=== PATIENT | male | born 1965 | race African-American/Black ===

== ENCOUNTER 2017-02-25 21:46 | Inpatient (IN) | payer OTHER ==
[~2017-02-25] VITALS: Ht 188 cm; Wt 102.5 kg
--- NOTE | ~2017-02-25 | PA ---
Unit #: [id number] #: [id number] Patient: SANTY RUBIO [id number] [facility] [address] [place] [address] [id number] MR#: [id number] NAME: SANTY RUBIO ROOM: [facility] Age: 51 Sex: M Admission Date: 02/26/2017 : 1965 Date of Assessment: 02/26/2017 Attending Physician: Kvng Delgado M.D. Admitting Physician: Kvng Delagdo M.D. Primary Care Physician: Primary Care Physician No PSYCHIATRIC ASSESSMENT IDENTIFYING INFORMATION The patient is a 51-year-old male admitted to the [address] [place] [address] with increased depression and abuse of cocaine. CHIEF COMPLAINT "My and I split up." INFORMANT Patient, reliability is fair. HISTORY OF PRESENT ILLNESS The patient is a 51-year-old male who was admitted to the [address] [place] [address] after he had presented to [facility] reporting positive suicidal ideation. The patient was reporting plan of taking sleeping pills. The patient denied prior suicide attempts or gestures. He reports that approximately 4 to 5 months ago, his left him. He is now homeless and has no contact with his children. The patient is presently unemployed. He had previously worked as a cook. The patient reports that he has never been in psychiatric treatment and never attempted suicide. He does admit to frequent cocaine use but states that it was "never daily thing." The patient reports ongoing suicidal ideation and sad mood when seen today. PAST PSYCHIATRIC HISTORY None. PAST MEDICAL HISTORY Noncontributory. MEDICATIONS None. ALLERGIES None. FAMILY HISTORY Noncontributory. SOCIAL HISTORY The patient is presently homeless. He reports use of cocaine by means of intranasal insufflation. 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 However, a review of old rosters in the does not reveal the Unit #: [id number] #: [id number] Patient: SANTY RUBIO patient's name on those rosters, and it is felt that the patient is probably fabricating the story. He also claims to have been in the [place] for 10 years. He states that he has never been incarcerated. MENTAL STATUS EXAMINATION Examination at this time reveals the patient to be a well-developed well-nourished male appearing stated age. He is in no apparent physical distress at the time of examination. He is awake, alert, and oriented in all spheres. His mood is mildly dysphoric, his affect constricted. Speech is generally well-coherent. There are no gross deficits in memory or cognition noted. Intelligence is judged to be in the average range based on fund of knowledge. The patient is cooperative throughout the interview. He is currently endorsing positive suicidal ideation. He denies homicidal ideation. He denies any psychotic symptoms. His judgment and insight appear to be intact. ASSETS AND LIABILITIES The patient's assets: Motivation for change. Liabilities: Lack of resource from ongoing cocaine use. DIAGNOSTIC IMPRESSION 1. Dysthymic disorder. 2. Cocaine use disorder. TREATMENT PLAN The patient remains hospitalized for safety and stabilization. A trial of Lexapro 10 mg daily will be added to address the patient's Tourette symptoms. He will participate in appropriate order of milieu activities, and I will ask the elementary school social worker to see him regarding possible residential treatment for his cocaine addiction. ESTIMATED LENGTH OF STAY 3 to 5 days. Dictated byTracey Saez M.D. KEYA/marshall TD: 02/26/2017 14:16 JOB #: [id number] PSYCHIATRIC ASSESSMENT Page 1 of 1 X Wm. Rich aSez PSYCHIATRIC ASSESSMENT
--- NOTE | ~2017-02-25 | DS ---
Unit #: [id number] #: [id number] Patient: SANTY RUBIO [id number] [facility] [address] [place] [address] [id number] I MR#: [id number] NAME: SANTY RUBIO ROOM: [facility] Age: 51 Sex: M Admission Date: 02/26/2017 : 1965 Discharge Date: 03/03/2017 Attending Physician: Kvng Delgado M.D. Primary Care Physician: Primary Care Physician No DISCHARGE SUMMARY REASON FOR ADMISSION The patient is a 51-year-old male, admitted with depressed mood and increasing cocaine use. HOSPITAL COURSE The patient was admitted to the [address] [place] [address] unit and placed on suicide precautions. Lexapro 10 mg at 6 p.m. was initiated as well as p.r.n. trazodone 50 mg at h.s. The patient's stay in the hospital was a fairly uneventful one. 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 Review of roster's from the showed that the patient had never been enrolled at that facility. Whatever the case, the patient was generally pleasant and cooperative with interactions with peers and staff. By 03/03/2017, arrangements have been made for the patient to go to the [facility] and discharge was ordered. FINAL DIAGNOSES Cocaine use disorder and dysthymic disorder. DISPOSITION ON DISCHARGE The patient is discharged on the following medications; Lexapro 10 mg daily for depression, trazodone 50 mg at h.s. p.r.n. insomnia, and Norvasc 2.5 mg once daily for hypertension. DIET AND ACTIVITY No dietary or physical restrictions were placed on the patient at the time of discharge. FOLLOWUP Follow up will take place through the auspices of community mental health resources. PROGNOSIS The patient's prognosis is fair. Dictated by... Kvng Delgado M.D. ALEJANDRINA/jimmy TD: 03/03/2017 13:44 Unit #: [id number] #: [id number] Patient: SANTY RUBIO JOB #: [id number] DISCHARGE SUMMARY Page 1 of 1 X Kvng Delgdao MD DISCHARGE SUMMARY
--- NOTE | ~2017-02-25 | PN ---
Unit #: [id number] #: [id number] Patient: SANTY RUBIO [id number] [facility] [address] [place] [address] [id number] I MR#: [id number] NAME: SANTY RUBIO ROOM: [facility] Age: 51 Sex: M Admission Date: 02/26/2017 : 1965 Attending Physician: Kvng Delgado M.D. Admitting Physician: Kvng Delgado M.D. Primary Care Physician: Primary Care Physician Nelsy RETANA PROGRESS NOTES DATE 03/02/2017 DISCUSSION The patient continues to report sad mood and positive suicidal ideation related to his marital breakup and lack of access to his children. Unfortunately at this point we have had little success and remains in residential treatment though our referral to "[facility]" has been sent out. I have spoken with the patient regarding realistic expectations of inpatient care, and I have told him to expect a.m. discharge whether or not we have been able to arrange residential treatment. The patient is understanding. Dictated by... Kvng Delgado M.D. ALEJANDRINA/marshall TD: 03/02/2017 13:42 JOB #: [id number] [facility] PROGRESS NOTES Page 1 of 1 X Kvng Delgado MD PROGRESS NOTE
--- NOTE | ~2017-02-25 | PN ---
Unit #: [id number] #: [id number] Patient: SANTY RUBIO [id number] [facility] [address] [place] [address] [id number] MR#: [id number] NAME: SANTY RUBIO ROOM: [facility] Age: 51 Sex: M Admission Date: 02/26/2017 : 1965 Attending Physician: Kvng Delgado M.D. Admitting Physician: Kvng Delgado M.D. Primary Care Physician: Primary Care Physician Nelsy RETANA PROGRESS NOTES DATE 02/27/2017 DISCUSSION The patient is active within the therapeutic milieu. He states today that because he has veterans benefits he may be eligible for residential chemical dependence treatment in the [facility]. 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 Dictated by... Kvng Delgado M.D. CB/marshall TD: 02/27/2017 12:23 JOB #: [id number] [facility] PROGRESS NOTES Page 1 of 1 X Kvng Delgado MD X PROGRESS NOTE
--- NOTE | ~2017-02-25 | PN ---
Unit #: [id number] #: [id number] Patient: SANTY RUBIO [id number] [facility] [address] [place] [address] [id number] MR#: [id number] NAME: SANTY RUBIO ROOM: [facility] Age: 51 Sex: M Admission Date: 02/26/2017 : 1965 Attending Physician: Kvng Delgado M.D. Admitting Physician: Kvng Delgado M.D. Primary Care Physician: Primary Care Physician Nelsy RETANA PROGRESS NOTES DATE 03/01/2017 DISCUSSION The patient voices no new complaints today. We continue to explore post discharge treatment options. His expectations of inpatient care have today been briefly have been redirected. Dictated by... Kvng Delgado M.D. CB/dillon TD: 03/02/2017 02:59 JOB #: [id number] [facility] PROGRESS NOTES Page 1 of 1 X Kvng Delgado MD X PROGRESS NOTE
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
--- NOTE | ~2017-02-25 | PN ---
Unit #: [id number] #: [id number] Patient: SANTY RUBIO [id number] [facility] [address] [place] [address] [id number] I MR#: [id number] NAME: SANTY RUBIO ROOM: [facility] Age: 51 Sex: M Admission Date: 02/26/2017 : 1965 Attending Physician: Kvng Delgado M.D. Admitting Physician: Kvng Delgado M.D. Primary Care Physician: Primary Care Physician Nelsy RETANA PROGRESS NOTES DATE 02/28/2017 DISCUSSION The patient remains active in the therapeutic milieu. He reports that he was more dysphoric this morning after missing evangelical with his children. He continues to express interest in a referral to a [place] residential chemical dependence treatment facility in [place]. I have asked a social work therapist to see him regarding this tomorrow. Dictated by... Kvng Delgado M.D. CB/dillon TD: 02/28/2017 22:11 JOB #: [id number] [facility] PROGRESS NOTES Page 1 of 1 X Kvng Delgado MD PROGRESS NOTE
[2017-03-01 10:58] LABS: AMPHETAMINE NEG (NEG); BARBITURATES NEG (NEG); BENZODIAZEPINES NEG (NEG); COCAINE POS (NEG); MARIJUANA POS (NEG); OPIATES NEG (NEG); TRICYCLIC ANTIDEPRESSANTS NEG (NEG); U METHADONE NEG (NEG)
== END 2017-03-03 15:25 | DRG 897 ==
LOC: P2S 02-26 01:13
PROVIDERS: Specialist
DX: F14.10 Cocaine abuse, uncomplicated (principal); I10 Essential (primary) hypertension; F34.1 Dysthymic disorder; F17.210 Nicotine dependence, cigarettes, uncomplicated
CPT/HCPCS: 80307